=== PATIENT | female | born 1990 | race Caucasian/White ===

== ENCOUNTER 2021-11-22 16:58 | Outpatient (CLI) | payer BC, SELFPAY ==
[2021-11-22 17:27] LABS: Basophils Percent Auto 0.2 % (0.2-1.2); Eosinophils Absolute Auto 0.2 K/mm3 (0-0.3); Eosinophils Percent Auto 2.7 % (0-4.4); Hematocrit 35.9 % (37.0-47.0); Hemoglobin 11.6 g/dL (12.0-15.0); Immature Granulocyte Absolute 0.03 K/mm3 (0.00-0.031); Immature Granulocyte Percent A 0.5 % (0-0.5); Lymphocytes Absolute Auto 1.93 K/mm3 (0.9-3.2); Lymphocytes Percent Auto 30.1 % (18.3-44.2); Mean Corpuscular HGB Conc 32.3 g/dl (32-36); Mean Corpuscular Hemoglobin 25.6 pg (26-34); Mean Corpuscular Volume 79.2 fl (80-100); Mean Platelet Volume 10.4 fl (7.4-10.4); Monocytes Absolute Auto 0.4 K/mm3 (0.1-0.6); Monocytes Percent Auto 5.6 % (2.6-8.5); Neutrophils Absolute Auto 3.9 K/mm3 (1.3-6.7); Neutrophils Percent Auto 60.9 % (45.5-73.1); Platelet Count Result 214 k/mm3 (150-375); Red Blood Count 4.53 M/mm3 (4.2-5.4); Red Cell Distribution Width 14.1 % (11.5-14.5); White Blood Count 6.4 K/mm3 (4.5-10.0)
[2021-11-22 17:41] LABS: Anion Gap 11 mmol/L (8-16); Blood Urea Nitrogen 9 mg/dL (7-17); Calcium 7.9 mg/dL (8.4-10.2); Carbon Dioxide 25 mmol/L (22-30); Chloride 103 mmol/L (98-107); Estimated Glomerular Filt Rate > 60; Glucose 121 mg/dL (65-110); Potassium 3.6 mmol/L (3.4-5.0); Sodium 139 mmol/L (137-145)
[2021-11-22 17:56] LABS: Beta HCG Quantitative < 2.39 mIU/ML
== END 2021-11-22 16:59 | disposition home or self-care (01) ==
PROVIDERS: PCP Family Medicine; Visit Provider Physician Assistant Medical
DX: I10 Essential (primary) hypertension (principal); N91.2 Amenorrhea, unspecified; R11.2 Nausea with vomiting, unspecified
CPT/HCPCS: 36415; 80048; 84443; 84702; 85025

== ENCOUNTER 2022-04-16 15:57 | Emergency (ER) | payer BC, SELFPAY ==
--- NOTE | 2022-04-16 16:04 | ED.URI ---
HPI - URI/Sore Throat General Chief Complaint: Upper Respiratory Infection Stated Complaint: Sinus/Cough Time Seen by Provider: 04/16/22 16:04 Source: patient, RN notes reviewed and old records reviewed Mode of arrival: ambulatory Limitations: no limitations History of Present Illness HPI Narrative: 31-year-old female presents to the [facility] with sinus congestion and cough for ?a few days. ? Patient has not taken anything states she does not know what medication she can take that is safe with her prescribed medications Related Data Home Medications Medication Instructions Recorded Confirmed fexofenadine-pseudoephedrine ER 1 tablet PO QAM 04/16/22 04/16/22 180 mg-240 mg tablet,ext.release 24 hr (Lashell-D 24 Hour) Allergies Allergy/AdvReac Type Severity Reaction Status Date / Time norvasc AdvReac Intermediate Swelling Uncoded 04/16/22 16:05 Review of Systems Review of Systems: All systems reviewed & are unremarkable except as noted in HPI and below Constitutional: Constitutional: Reports no additional constitutional complaints Eyes: Eyes: Reports no additional eye complaints ENT: Reports as per HPI and Reports nasal congestion Cardiovascular: Cardiovascular: Reports no additional cardiovascular complaints, Denies chest pain and Denies dyspnea Respiratory: Respiratory: Reports as per HPI, Denies chest congestion, Reports cough and Denies dyspnea Gastrointestinal: Gastrointestinal: Reports no additional gastrointestinal complaints, Denies abdominal pain, Denies nausea and Denies vomiting Musculoskeletal: Musculoskeletal: Reports no additional musculoskeletal complaints Integumentary/Breasts: Skin/Breast: Reports system reviewed and no additional complaints, except as docu Neurologic: Reports system reviewed and no additional complaints, except as documented Psychiatric: Psychiatric: Reports no additional psychiatric complaints Allergic/Immunologic: Allergic/Immunologic: Reports no additional allergic/immunologic complaints [facility] Past Medical History Medical History BMI 45.0-49.9, adult BMI 50.0-59.9, adult delivery delivered Surgical History Surgical History H/O section Family History Family History Father Bipolar 1 disorder Hypertension Diabetes mellitus Mother Diabetes mellitus Hypertension Sibling No problems noted. 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 There is no relevant family history pertinent to the patient complaint. Exam Const: General: cooperative, healthy appearing, comfortable, no acute distress, well developed, alert and well nourished Nutritional Appearance: well nourished and obese Orientation/consciousness: patient oriented x3 Limitations: no limitations HENMT: Head: normal to inspection Ears: hearing grossly normal bilaterally and external ears normal Face/Nose/Sinus: Normal external nose present, Normal nares present, Normal nasal mucous membranes and turbinates present, Nasal discharge present clear bilateral and normal facial exam Face and sinus: normal facial exam Mouth: Yes Normal oral and palatal mucosa present, Yes lip normal and Yes moist mucous membranes Throat: posterior orophary
[2022-04-16 16:06] VITALS: BP 143/76; PULSE 97; RESP 12; TEMP 37.7; O2SAT 99
[2022-04-16 16:07] VITALS: BP 143/76; PULSE 97; RESP 12; TEMP 37.7; O2SAT 99
== END 2022-04-16 16:36 | disposition home or self-care (01) ==
PROVIDERS: Emergency Provider Nurse Practitioner; PCP Family Medicine
DX: J32.9 Chronic sinusitis, unspecified (principal); J40 Bronchitis, not specified as acute or chronic; Z20.822 Contact with and (suspected) exposure to COVID-19; I10 Essential (primary) hypertension; E66.01 Morbid (severe) obesity due to excess calories; Z68.42 Body mass index [BMI] 45.0-49.9, adult; F12.90 Cannabis use, unspecified, uncomplicated
CPT/HCPCS: 87426; 87804; 99213; C9803; G0463

== ENCOUNTER 2022-06-07 18:25 | Emergency (ER) | payer BC, SELFPAY ==
[2022-06-07 18:32] VITALS: BP 168/93; PULSE 75; RESP 18; TEMP 36.2; O2SAT 100
--- NOTE | 2022-06-07 19:14 | ED.GENADULT ---
HPI - General Adult General Chief complaint: Unspecified Stated complaint: Elevated Blood Pressure Time Seen by Provider: 06/07/22 18:56 Source: patient Mode of arrival: ambulatory Limitations: no limitations History of Present Illness HPI narrative: Patient presents today complaining of swelling to the bilateral feet and ankles x1 week, worse over the last 2 days. She believes this is related to her blood pressure. History of hypertension for which she takes metoprolol lisinopril. She called her PCP's office. They did not have an appointment for her and told her to come to urgent care or the emergency department for evaluation. She denies chest pain or shortness of breath. Denies headache, dizziness, lightheadedness. She does not check her blood pressure at home. States she had pitting edema in her feet and ankles when she had preeclampsia while , but none since that time. Related Data Home Medications Medication Instructions Recorded Confirmed fexofenadine-pseudoephedrine ER 1 tablet PO QAM 04/16/22 06/07/22 180 mg-240 mg tablet,ext.release 24 hr (Lashell-D 24 Hour) Allergies Allergy/AdvReac Type Severity Reaction Status Date / Time norvasc AdvReac Intermediate Swelling Uncoded 04/16/22 16:05 Review of Systems Review of Systems: CONSTITUTIONAL: Denies body aches, fever, chills, or sweats. EYES: Denies visual changes, redness, or discharge. ENT: Denies rhinorrhea, congestion, sore throat, or otalgia. CARDIOVASCULAR: Denies chest pain, palpitations, or edema. RESPIRATORY: Denies cough or dyspnea. GASTROINTESTINAL: Denies abdominal pain, nausea, vomiting, or diarrhea. GENITOURINARY: Denies dysuria or hematuria. SKIN: Denies rash, itching, or wounds. MUSCULOSKELETAL: Denies back pain, joint pain, or myalgia.+ swelling of bilateral feet and ankles NEUROLOGIC: Denies headache, numbness, tingling, or weakness. PSYCH: Denies depression or anxiety. [facility] Past Medical History Medical History BMI 45.0-49.9, adult BMI 50.0-59.9, adult delivery delivered Surgical History Surgical History H/O section Family History Family History Father Bipolar 1 disorder Hypertension Diabetes mellitus Mother Diabetes mellitus Hypertension Sibling No problems noted. 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 Please see nursing chart for further information. There is no relevant family history pertinent to the presenting complaint Exam Narrative: GENERAL: Well-appearing, well-nourished, and in no acute distress. HEAD: Normocephalic, atraumatic. EYES: EOMI. No redness or drainage. Conjunctivae normal. ENT: Mucous membranes pink and moist. NECK: Normal AROM. CHEST: No respiratory distress. Clear to auscultation. HEART: Regular rate and rhythm. No murmur appreciated. Normal peripheral pulses. ABDOMEN: Soft, nontender, nondistended, normal active bowel sounds. MUSCULOSKELETAL: Bilateral 2 to 3+ pitting in the ankles and feet. Strong palpable pedal pulses bilaterally. Distal sensation intact. Capillary refill normal. Full range of motion of the ankle and all toes bilaterally. Normal color. SKIN: Warm, dry, no rash. Capilla
== END 2022-06-07 19:36 | disposition home or self-care (01) ==
PROVIDERS: Emergency Provider Nurse Practitioner; PCP Family Medicine
DX: R60.0 Localized edema (principal)
CPT/HCPCS: 99211; G0463

== ENCOUNTER → 2022-07-06 15:38 | Outpatient (CLI) | payer BC, SELFPAY ==
--- NOTE | ~2022-07-06 | XR_ITS ---
EXAMINATION: XR tibia fibula LT 2V DATE: 07/06/2022 16:01 INDICATION: Unspecified fall, initial encounter. TECHNIQUE: 2 views of left tibia and fibula were obtained. COMPARISON: None. FINDINGS: Bone alignment is normal. No fracture. Joint spaces are normal. IMPRESSION: 1. Normal left tibia and fibula. Reviewed, dictated and finalized at location E.
== END ==
PROVIDERS: PCP Family Medicine; Visit Provider Nurse Practitioner Family
DX: S89.92XA Unspecified injury of left lower leg, initial encounter (principal); W19.XXXA Unspecified fall, initial encounter
CPT/HCPCS: 73590

== ENCOUNTER 2022-07-13 16:07 | Outpatient (CLI) | payer BC, SELFPAY ==
[2022-07-13 16:40] LABS: Basophils Percent Auto 0.3 % (0.2-1.2); Eosinophils Absolute Auto 0.1 K/mm3 (0-0.3); Eosinophils Percent Auto 2.3 % (0-4.4); Hematocrit 38.3 % (37.0-47.0); Hemoglobin 12.6 g/dL (12.0-15.0); Immature Granulocyte Absolute 0.03 K/mm3 (0.00-0.031); Immature Granulocyte Percent A 0.5 % (0-0.5); Lymphocytes Absolute Auto 2.01 K/mm3 (0.9-3.2); Lymphocytes Percent Auto 32.7 % (18.3-44.2); Mean Corpuscular HGB Conc 32.9 g/dl (32-36); Mean Corpuscular Hemoglobin 26.8 pg (26-34); Mean Corpuscular Volume 81.3 fl (80-100); Mean Platelet Volume 10.2 fl (7.4-10.4); Monocytes Absolute Auto 0.4 K/mm3 (0.1-0.6); Monocytes Percent Auto 6.4 % (2.6-8.5); Neutrophils Absolute Auto 3.6 K/mm3 (1.3-6.7); Neutrophils Percent Auto 57.8 % (45.5-73.1); Platelet Count Result 248 k/mm3 (150-375); Red Blood Count 4.71 M/mm3 (4.2-5.4); White Blood Count 6.1 K/mm3 (4.5-10.0)
[2022-07-13 17:33] LABS: Vitamin D 25 Hydroxy 13.6 ng/mL
[2022-07-13 17:46] LABS: Alanine Aminotransferase 107 U/L (6-35); Albumin Level 4.4 g/dL (3.5-5.1); Alkaline Phosphatase 69 U/L (38-126); Anion Gap 11 mmol/L (8-16); Aspartate Amino Transferase 75 U/L (14-36); Bilirubin,Total 0.5 mg/dL (0.2-1.3); Blood Urea Nitrogen 10 mg/dL (7-17); Calcium 8.2 mg/dL (8.4-10.2); Carbon Dioxide 26 mmol/L (22-30); Chloride 101 mmol/L (98-107); Cholesterol 108 mg/dL (0-200); Estimated Glomerular Filt Rate > 60; Glucose 94 mg/dL (65-110); HDL Direct 38 mg/dL; Potassium 3.4 mmol/L (3.4-5.0); Sodium 138 mmol/L (137-145); Triglycerides 86 mg/dL (<150)
[2022-07-13 17:59] LABS: LDL Cholesterol Direct 58 mg/dL
[2022-07-13 18:02] LABS: Hemoglobin A1C 5.4 % (<5.7)
== END 2022-07-13 16:08 | disposition home or self-care (01) ==
PROVIDERS: PCP Family Medicine; Visit Provider Registered Nurse
DX: Z01.419 Encounter for gynecological examination (general) (routine) without abnormal findings (principal); Z79.899 Other long term (current) drug therapy
CPT/HCPCS: 36415; 80053; 80061; 82306; 83036; 84443; 85025

== ENCOUNTER 2023-02-20 09:18 | Outpatient (CLI) | payer BC, SELFPAY ==
--- NOTE | ~2023-02-20 | CT_ITS ---
EXAMINATION: CT diagnostic chest wo con DATE: 02/20/2023 09:45 INDICATION: Acute upper respiratory infection TECHNIQUE: Computed tomography (CT) of the chest was performed without intravenous contrast. The dose -length product was 1076.62 mGy-cm. Automated exposure control and iterative reconstruction technique were employed. COMPARISON: None FINDINGS: No significant pleural or pericardial effusion. No thoracic lymphadenopathy. No significant vascular abnormality. Heart size normal. Fatty infiltration of the liver. No endobronchial lesion. N o focal airspace disease. No pneumothorax. No pulmonary nodules. No acute osseous abnormality. IMPRESSION: 1. Unremarkable CT chest. 2: Fatty infiltration of the liver. Reviewed, dictated and finalized at location L. ICAL INFORMATICIST
--- NOTE | 2023-02-20 17:27 | WPDPFTINT ---
PFT Procedure Performed PFT Procedure Performed Spirometry with Pre/Post Bronchodilator Plethysmography (Lung Vol) Diffusing Cap (DLCO) Flow Vol Loop PFT Interpretation This is a pulmonary function test with pre and post-bronchodilator spirometry, plethysmography and diffusing capacity. The test was performed and results interpreted in accordance with the 2019 and 2005 ATS/ERS Task Force guidelines respectively using the Global Lung Function Initiative-2012 reference equations. Patient demonstrated good effort and cooperation. Reproducibility criteria were met. The quality of the pre bronchodilator spirometry maneuver was Grade B and post bronchodilator spirometry maneuver was Grade A. Findings: Spirometry: The contour the inspiratory and expiratory flow tracing are normal. The pre bronchodilator FVC is 3.94 L, 91% predicted. The pre bronchodilator FEV1 is 3.13 L, 87% predicted. The pre bronchodilator FEV1: FVC ratio 79%. The post bronchodilator FVC is 4.07 L, representing a 3% increase. The post bronchodilator FEV1 is 3.37 L, representing an 8% increase. The post bronchodilator FEV1: FVC ratio is 83%. Plethysmography: The total lung capacity is 5.20 L, 92% predicted. The functional residual capacity is 2.04 L, 65% predicted. The residual volume is 1.26 L, 76% predicted. Diffusing capacity: The diffusing capacity unadjusted for hemoglobin and carboxyhemoglobin is 19.5, 74% predicted. The diffusing capacity adjusted for alveolar volume is 4.23, 90% predicted. Impression: The spirometry is normal without evidence of an obstructive abnormality. There is no significant improvement after inhaling a single dose of albuterol. The total lung capacity and residual volume are normal with a decreased functional residual capacity. This is an abnormal but nonspecific lung volume pattern. The diffusing capacity unadjusted for hemoglobin and carboxyhemoglobin is mildly decreased and normalizes when adjusted for alveolar volume. There are no prior studies for comparison
== END 2023-02-20 09:19 | disposition home or self-care (01) ==
PROVIDERS: PCP Family Medicine; Visit Provider Physician Assistant
DX: J30.9 Allergic rhinitis, unspecified (principal); J06.9 Acute upper respiratory infection, unspecified; K76.0 Fatty (change of) liver, not elsewhere classified
CPT/HCPCS: 71250; 94060; 94726; 94729

== ENCOUNTER 2023-03-24 10:30 | Outpatient (CLI) | payer BC, SELFPAY ==
[2023-03-29 05:46] LABS: Immunoglobulin A 121 mg/dL (47-310); Immunoglobulin G 687 mg/dL (600-1640); Immunoglobulin M 60 mg/dL (50-300)
== END 2023-03-24 10:31 | disposition home or self-care (01) ==
LOC: ANHLAB 10:31
PROVIDERS: PCP Family Medicine; Visit Provider Physician Assistant
DX: J30.9 Allergic rhinitis, unspecified (principal); J06.9 Acute upper respiratory infection, unspecified
CPT/HCPCS: 36415; 82784; 82785; 86003

== ENCOUNTER 2024-02-07 08:22 | Outpatient (CLI) | payer BC, SELFPAY ==
[2024-02-07 08:51] LABS: Basophils Percent Auto 0.4 % (0.2-1.2); Hemoglobin 13.1 g/dL (12.0-15.0); Immature Granulocyte Absolute 0.01 K/mm3 (0.00-0.031); Immature Granulocyte Percent A 0.2 % (0-0.5); Lymphocytes Absolute Auto 1.71 K/mm3 (0.9-3.2); Mean Corpuscular Hemoglobin 25.5 pg (26-34); Mean Corpuscular Volume 79.9 fl (80-100); Monocytes Absolute Auto 0.3 K/mm3 (0.1-0.6); Neutrophils Absolute Auto 3.6 K/mm3 (1.3-6.7); Neutrophils Percent Auto 63.4 % (45.5-73.1); Platelet Count Result 226 k/mm3 (150-375); Red Blood Count 5.13 M/mm3 (4.2-5.4); White Blood Count 5.7 K/mm3 (4.5-10.0)
[2024-02-07 08:53] LABS: Alveolar/Arterial O2 Gradient 8.6 mmHg; Base Excess ABG 0.7 mEq/l (+/-2.0); Carboxyhemoglobin 0.6 % THb (0-2.0); Fractional Inspired Oxygen 21 %; Oxygen Content ABG 18.8 %vol (16.0-22.0); Oxygen Saturation ABG 96.7 % (95.0-100.0); Oxyhemoglobin 96.3 % THb (90.0-100.0); PCO2 ABG 43.9 mmHg (35.0-45.0); PO2 ABG 88.6 mmHg (80.0-100.0); PO2 FiO2 Ratio Arterial Blood 4.22 %; Reduced Hemoglobin 3.1 %THb (0-5.0); Total Hemoglobin 13.8 g/dL (12.0-18.0)
[2024-02-07 09:08] LABS: Alanine Aminotransferase 25 U/L (6-35); Albumin Level 4.4 g/dL (3.5-5.1); Alkaline Phosphatase 62 U/L (38-126); Anion Gap 6 mmol/L (4-12); Aspartate Amino Transferase 25 U/L (14-36); Bilirubin,Total 0.7 mg/dL (0.2-1.3); Blood Urea Nitrogen 13 mg/dL (7-17); Calcium 8.9 mg/dL (8.4-10.2); Carbon Dioxide 27 mmol/L (22-30); Chloride 104 mmol/L (98-107); Cholesterol 170 mg/dL (0-200); Estimated Glomerular Filt Rate > 60; Glucose 121 mg/dL (65-110); HDL Direct 48 mg/dL; Sodium 137 mmol/L (137-145); Triglycerides 125 mg/dL (<150)
[2024-02-07 09:19] LABS: LDL Cholesterol Direct 97 mg/dL
[2024-02-07 10:09] LABS: Device ROOM AIR; Modified Allen's Test Pass; Site Drawn RIGHT RADIAL
[2024-02-08 13:43] LABS: Immunoglobulin A 108 mg/dL (47-310); Immunoglobulin G 630 mg/dL (600-1640); Immunoglobulin M 55 mg/dL (50-300)
[2024-02-09 20:03] LABS: Immunoglobulin E 8 kU/L (<OR=114)
--- NOTE | 2024-02-11 18:58 | WPDPFTINT ---
PFT Procedure Performed PFT Procedure Performed Spirometry with Pre/Post Bronchodilator Plethysmography (Lung Vol) Diffusing Cap (DLCO) Flow Vol Loop PFT Interpretation DOS: 02/07/2024 REQUESTING: Amos Fernandez MD REASON FOR TESTING: Frequent respiratory infections PULMONARY FUNCTION TESTS Results are reliable and reproducible. Repeatability of spirometry FEV1 maneuver pre and post bronchodilator is Grade A. Spirometry: The pre-bronchodilator FEV1 is 2.71 L, 76%, decreased. The pre-bronchodilator FVC is 4.10 L, 94%, normal. The FEV1/FVC ratio is 66%, decreased consistent with airflow obstruction. After bronchodilator, the FEV1 is 3.34 L, 93%, +23%. The post-bronchodilator FVC is 4.20 L, 97%, +3%. The FEV1/FVC ratio is 80%, normal. Lung volumes: The total lung capacity is 5.58 L, 98%. The residual volume is 1.49 L, 89%. The RV/TLC is 27%. FRC is 2.03 L, 65%, mildly reduced. Airway resistance is normal. Diffusion: DLCO is 23.6, 90%. The DLCO/VA is 4.31, 92%. Flow volume loop: The flow volume loop is abnormal, limited movement in both inspiratory and expiratory loops. IMPRESSION: This study shows a mild obstructive ventilatory impairment with excellent response to bronchodilator, normal TLC and RV, decreased FRC which is a nonspecific finding, and normal diffusion. Compared to a prior study on 02/20/2023, the patient had a normal FEV1, 3.13 L which was 87%, now this is below normal, 2.71 L, 76%. FRC is similar to prior test. The airflow obstruction appears to be new. The patient did not have a significant response to bronchodilator on the prior study however did not have airflow obstruction. Lung volumes are similar. The DLCO was 74% mildly decreased, now is normal 90%. The flow volume loop is progressively abnormal and may suggest a fixed obstruction. Clinical correlation is recommended. lAaina Huntley MD
--- NOTE | 2024-02-11 19:11 | WPDSIXMINUTE ---
Six Minute Walk Procedure Procedure Performed Pulmonary Stress Test (6 min walk) Six Minute Walk Six Minute Walk: DATE OF SERVICE: 02/07/2024 REQUESTING: Amos Fernandez MD REASON FOR TESTING: Recurrent respiratory infections SIX MINUTE WALK This test was conducted per ATS guidelines. The initial saturation was 98%, and initial heart rate was 73 beats per minute. The patient walked without stopping, completing 365.7 m, 1200 ft. The saturation at the end of testing was 97%,, and the heart rate was 98 beats per minute. She had hip pain at the end of the test. The Wes dyspnea/fatigue Scale was 0.5 at the beginning of the study. IMPRESSION: This is a normal study. The patient did not require supplemental oxygen with exertion. Alaina Huntley MD
[2024-02-12 10:13] LABS: Immunoglobulin G, Serum 637 mg/dL (600-1640); Immunoglobulin G1 366 mg/dL (382-929); Immunoglobulin G2 171 mg/dL (241-700); Immunoglobulin G3 26 mg/dL (22-178); Immunoglobulin G4 10.9 mg/dL (4.0-86.0)
== END 2024-02-07 08:23 | disposition home or self-care (01) ==
PROVIDERS: PCP Family Medicine; Referring Provider Nurse Practitioner Adult Health; Visit Provider Internal Medicine Pulmonary Disease
DX: J06.9 Acute upper respiratory infection, unspecified (principal); J44.9 Chronic obstructive pulmonary disease, unspecified; J98.4 Other disorders of lung; I10 Essential (primary) hypertension; E66.9 Obesity, unspecified; Z13.220 Encounter for screening for lipoid disorders; Z13.29 Encounter for screening for other suspected endocrine disorder
CPT/HCPCS: 36415; 36600; 80053; 80061; 82375; 82784; 82785; 82787; 82805; 83050; 84443; 85018; 85025; 94060; 94618; 94726; 94729

== ENCOUNTER 2024-10-21 09:44 | Outpatient (CLI) | payer MEDICAID, SELFPAY ==
--- OUTSIDE RECORDS SUMMARY | 2024-10-21 10:02 | XMS_ITS | Encounter Summary ---
Author Organization [facility] Address 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
--- OUTSIDE RECORDS SUMMARY | 2024-10-21 10:02 | XMS_ITS | Clinical Summary ---
Author Organization [facility] Address [address] [place] [address] Care Team Providers Care Controls Technician Name Role Phone Unavailable Primary Care Provider Unavailabl e Source Comments [facility],non-owned Affiliates and Associated Physician Practices is amultiple site organization consisting of ambulatory clinics and hospital sitesin [place], [place], [place] and [place]. This disclosure is being madepursuant to the Care Everywhere program and may not contain all information available regarding this patient. Last updated 17.[facility] [employer] Allergies No known active allergies Immunizations Immunization Administration Dates Next Due FLU VACCINE QUAD IIV4 PF ID 02/01/2016 HEP A VACCINE, ADULT 02/07/2018 INFLUENZA VACCINE, QUADR. 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 Gender Identity Not on file Sexual Orientation Not on file Plan of Treatment Health Maintenance Due Date Last Done Comments HIV SCREENING 2004 HEPATITIS C SCREENING 09/01/2007 HEPATITIS B VACCINE (1 of 3 - 19+ 3-dose series) 2008 HPV VACCINE (1 - 3-dose SCDM series) 2016 HEPATITIS A VACCINE (2 of 2 - Risk 2-dose series) 08/08/2018 02/07/2018 COVID-19 VACCINE (1 - 2023-2 5 season) 2023 DEPRESSION SCREENING 02/27/2024 INFLUENZA VACCINE (#1) 2024 8, 02/01/2016 DTAP/TDAP/TD VACCINES (2 - T d or Tdap) 07/13/2026 07/13/2016 ZOSTER VACCINE (1 of 2) 09/06/2039 HIB VACCINE Aged Out No longer eligi ble based on patient's age to complete this topic MENINGOCOCCAL (Group B) VACCINE SHARED DECISION-MAKING Aged Out No longer eligible based on patient's age to complete this topic MENINGOCOCCAL GROUPS A/C/Y/W VACCINE Aged Out No longer eligible b ased on patient's age to complete this topic PNEUMOCOCCAL VACCINE Aged Out No long er eligible based on patient's age to complete this topic Insurance [facility]
--- OUTSIDE RECORDS SUMMARY | 2024-10-21 10:02 | XMS_ITS | Encounter Summary ---
Author Organization [facility] Address 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
--- OUTSIDE RECORDS SUMMARY | 2024-10-21 10:02 | XMS_ITS | Encounter Summary ---
Author Organization [facility] Address 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
--- OUTSIDE RECORDS SUMMARY | 2024-10-21 10:02 | XMS_ITS | Clinical Summary ---
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 Gender Identity Not on file Sexual Orientation Not on file Plan of Treatment Health Maintenance Due Date Last Done Comments HEPATITIS B VACCINES (1 of 3 - 19+ 3-dose series) 2008 HPV/Cotest (21-29) 2010 HPV VACCINES (1 - 3-dose SCDM series) 2016 CERVICAL CANCER SCREENING 09/06/2019 HPV/Cotest (30-65) 09/06/2019 PAP SMEAR 09/06/2019 INFLUENZA VACCINE (#1) 2024 02/07/2018, 2015 DTAP/TDAP/TD VACCINES (2 - Td or Tdap) 07/13/2026 Insurance [facility] [employer] PPO [id number] Care Teams Grape Crusher Relationship Specialty Start Date End Date Addie Velasco MD [address] [address] PCP - General Obstetrics and Gynecology 08/08/18
--- OUTSIDE RECORDS SUMMARY | 2024-10-21 10:02 | XMS_ITS | Encounter Summary ---
Author Organization [facility] Address 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
[2024-10-22 07:09] LABS: Immunoglobulin A, Qn 116 mg/dL (87-352); Immunoglobulin G, Qn 699 mg/dL (586-1602); Immunoglobulin M, Qn 47 mg/dL (26-217)
== END 2024-10-21 09:45 | disposition home or self-care (01) ==
LOC: ANHLAB 09:45
PROVIDERS: PCP Family Medicine; Visit Provider Physician Assistant
DX: D80.3 Selective deficiency of immunoglobulin G [IgG] subclasses (principal); J06.9 Acute upper respiratory infection, unspecified; J44.9 Chronic obstructive pulmonary disease, unspecified
CPT/HCPCS: 82784; 86317

== ENCOUNTER 2025-02-09 11:25 | Outpatient (CLI) | payer MEDICAID, SELFPAY ==
[2025-02-09 12:05] LABS: Hematocrit 38.3 % (37.0-47.0); Hemoglobin 12.2 g/dL (12.0-15.0); Mean Corpuscular HGB Conc 31.9 g/dl (32-36); Mean Corpuscular Hemoglobin 25.0 pg (26-34); Mean Corpuscular Volume 78.5 fl (80-100); Platelet Count Result 248 k/mm3 (150-375); Red Blood Count 4.88 M/mm3 (4.2-5.4); White Blood Count 5.6 K/mm3 (4.5-10.0)
[2025-02-09 12:26] LABS: Iron 50 ug/dL (37-170)
[2025-02-09 12:27] LABS: Alanine Aminotransferase 20 U/L (6-35); Albumin Level 4.4 g/dL (3.5-5.1); Alkaline Phosphatase 60 U/L (38-126); Anion Gap 6 mmol/L (4-12); Aspartate Amino Transferase 24 U/L (14-36); Bilirubin,Total 0.5 mg/dL (0.2-1.3); Blood Urea Nitrogen 10 mg/dL (7-17); Calcium 8.8 mg/dL (8.4-10.2); Carbon Dioxide 29 mmol/L (22-30); Chloride 101 mmol/L (98-107); Cholesterol 187 mg/dL (0-200); Estimated Glomerular Filt Rate > 60; Glucose 111 mg/dL (65-110); HDL Direct 59 mg/dL; Potassium 3.6 mmol/L (3.4-5.0); Sodium 136 mmol/L (137-145); Total Protein 7.3 g/dL (6.3-8.2); Triglycerides 140 mg/dL (<150)
[2025-02-09 12:38] LABS: Percent Iron Saturation 12 % (20-50)
[2025-02-09 13:03] LABS: Thyroid Stimulating Hormone 1.550 uIU/mL (0.465-4.680)
[2025-02-11 21:07] LABS: Estrogens, Total 213 pg/mL (.)
[2025-02-12 01:07] LABS: Free Testosterone (Direct) 1.2 pg/mL (0.0-4.2)
== END 2025-02-09 11:26 | disposition home or self-care (01) ==
LOC: ANHLAB 11:26
PROVIDERS: PCP Family Medicine; Visit Provider Nurse Practitioner Family
DX: N92.6 Irregular menstruation, unspecified (principal); I10 Essential (primary) hypertension; R73.09 Other abnormal glucose; E66.9 Obesity, unspecified; R68.82 Decreased libido; D64.9 Anemia, unspecified
CPT/HCPCS: 36415; 80053; 80061; 82306; 82672; 83525; 83540; 83550; 84144; 84402; 84403; 84443; 85027